=== PATIENT | female | born 1940 ===

== ENCOUNTER 2023-02-14 15:14 | Inpatient (IN) | payer MEDICARE, OTHER ==
[2023-02-14 18:02] LABS: #Basophils 0.1 10x3/uL (0.0-0.2); #Monocytes 0.4 10x3/uL (0.0-1.1); #Neutrophils 5.7 10x3/uL (1.5-8.4); %Basophils 0.7 % (0.0-2.0); %Eosinophils 0.4 % (0.0-6.0); %Lymphocytes 13.6 % (18.0-47.0); %Monocytes 5.6 % (0.0-10.0); %Neutrophils 79.1 % (40.0-75.0); Hematocrit 33.6 % (34.9-44.5); Hemoglobin 11.4 g/dL (12.0-15.5); Mean Corpuscular HGB CONC 33.9 g/dL (32.0-36.0); Mean Corpuscular Hemoglobin 32.9 pg (27.0-33.0); Mean Corpuscular Volume 96.8 fl (81.6-98.3); Mean Platelet Volume 8.8 fl (7.4-10.4); Platelet Count 254 10x3/uL (150-450); RBC Distribution Width 13.1 % (11.5-14.5); Red Blood Cell (RBC) Count 3.47 10x6/uL (3.90-5.03); White Blood Cell (WBC) Count 7.2 10x3/uL (3.5-10.5)
[2023-02-14 18:13] LABS: ALT (SGPT) 14 U/L (8-55); AST (SGOT) 60 U/L (5-34); Albumin 4.5 g/dL (3.4-4.8); Alkaline Phosphatase 68 U/L (40-110); Anion Gap 16 mmol/L (10-20); BUN (Urea Nitrogen) 14 mg/dL (9.8-20.1); Bilirubin, Total 1.2 mg/dL (0.2-1.2); CK (CPK) 2146 U/L (29-168); Calc. Creatinine Clearance 0 mL/min (70-130); Calcium 9.8 mg/dL (7.8-10.44); Carbon Dioxide 25 mmol/L (23-31); Chloride 93 mmol/L (98-107); Estimated GFR 33; Globulin 3.5 g/dL (2.4-3.5); Glucose 106 mg/dL (83-110); Potassium 4.1 mmol/L (3.5-5.1); Sodium 130 mmol/L (136-145)
[2023-02-14] MEDS ORDERED: Haloperidol Lactate 5 MG/ML VIAL ONE (20:17)
[2023-02-14] MEDS ORDERED: Calcium Carbonate 500 MG ChewTAB PO PRN (20:47)
[2023-02-14] MEDS ORDERED: Guaifenesin DM 100-10/5 ML UDCUP PO PRN (20:47)
[2023-02-14] MEDS ORDERED: Senokot S 8.6-50 MG TAB PO PRN (20:47)
[2023-02-14] MEDS ORDERED: Ondansetron PF 4 MG/2 ML Vial IVP PRN (20:47)
[2023-02-14 21:23] LABS: Bilirubin Neg (Negative); Blood, Urine 10 (Negative); Clarity Clear (Clear); Glucose, Urine (Dipstick) Normal (Negative); Ketone, Urine Negative (Negative); Leukocyte 500 (Negative); Nitrite Negative (Negative); Protein, Urine (Dipstick) 30 mg/dl (Neg-Trace); Urobilinogen Normal mg/dL (Less than 2)
[2023-02-14 21:40] LABS: Bacteria/HPF 1+ HPF (None Seen); CAUTI Indications for Culture Alt mental st,lethar; RBC/HPF 0-3 HPF (0-3); Squamous Epithelial 0-3 HPF (0-3)
[2023-02-14 21:41] LABS: Urine Culture Reflex Yes Yes
[2023-02-14] MEDS ORDERED: cefTRIAXone (ROCEPHIN) 1 GM VIAL ONE (21:50)
[2023-02-15 01:59] VITALS: BMI 21.9
[2023-02-15] MEDS ORDERED: QUEtiapine 25 MG TAB PO SCH (02:00)
[2023-02-15] MEDS ORDERED: QUEtiapine 25 MG TAB ONE (02:05)
[2023-02-15] MEDS: Dextrose 5 % And 0.9 % NaCl 1,000 ML IV SCH ×3 (02:06→21:22)
[2023-02-15 03:59] LABS: ALT (SGPT) 15 U/L (8-55); AST (SGOT) 68 U/L (5-34); Albumin 4.5 g/dL (3.4-4.8); Alkaline Phosphatase 68 U/L (40-110); Anion Gap 22 mmol/L (10-20); BUN (Urea Nitrogen) 15 mg/dL (9.8-20.1); Bilirubin, Total 1.1 mg/dL (0.2-1.2); CK (CPK) 2828 U/L (29-168); Calc. Creatinine Clearance 26 mL/min (70-130); Calcium 9.3 mg/dL (7.8-10.44); Carbon Dioxide 20 mmol/L (23-31); Chloride 94 mmol/L (98-107); Estimated GFR 36; Globulin 3.3 g/dL (2.4-3.5); Glucose 103 mg/dL (83-110); Potassium 4.8 mmol/L (3.5-5.1); Protein, Total 7.8 g/dL (5.8-8.1); Sodium 131 mmol/L (136-145)
[2023-02-15 04:25] LABS: Thyroid Stimulating Hormone 62.8496 uIU/mL (0.35-4.94)
[2023-02-15 04:48] LABS: #Eosinphils 0.1 10x3/uL (0.0-0.5); #Monocytes 0.4 10x3/uL (0.0-1.1); #Neutrophils 6.5 10x3/uL (1.5-8.4); %Basophils 0.4 % (0.0-2.0); %Eosinophils 0.6 % (0.0-6.0); %Lymphocytes 11.2 % (18.0-47.0); %Monocytes 5.2 % (0.0-10.0); %Neutrophils 81.8 % (40.0-75.0); Hematocrit 33.8 % (34.9-44.5); Hemoglobin 11.7 g/dL (12.0-15.5); Mean Corpuscular HGB CONC 34.6 g/dL (32.0-36.0); Mean Corpuscular Hemoglobin 32.8 pg (27.0-33.0); Mean Corpuscular Volume 94.7 fl (81.6-98.3); Mean Platelet Volume 9.6 fl (7.4-10.4); Platelet Adequacy Comment PLT clumps seen-ADEQ; Platelet Count 193 10x3/uL (150-450); RBC Distribution Width 12.9 % (11.5-14.5); Red Blood Cell (RBC) Count 3.57 10x6/uL (3.90-5.03); White Blood Cell (WBC) Count 7.9 10x3/uL (3.5-10.5)
[2023-02-15] MEDS ORDERED: Levothyroxine Sodium 75 MCG TAB PO SCH (09:00)
[2023-02-15] MEDS: QUEtiapine 25 MG TAB PO SCH (21:20)
[2023-02-15] MEDS: cefTRIAXone\\ROCEPHIN 1 GM in Sodium Chloride 0.9% 100 ML IVPB SCH (21:20)
[2023-02-16] MEDS: Levothyroxine Sodium 75 MCG TAB PO SCH (06:08)
[2023-02-16] MEDS: Sodium Chloride 0.9% 1,000 ML IV SCH ×2 (11:04→18:58)
[2023-02-16 17:42] LABS: Anion Gap 12 mmol/L (10-20); BUN (Urea Nitrogen) 7 mg/dL (9.8-20.1); CK (CPK) 1892 U/L (29-168); Calc. Creatinine Clearance 30 mL/min (70-130); Calcium 8.5 mg/dL (7.8-10.44); Carbon Dioxide 23 mmol/L (23-31); Chloride 101 mmol/L (98-107); Estimated GFR 42; Glucose 104 mg/dL (83-110); Potassium 3.7 mmol/L (3.5-5.1); Sodium 132 mmol/L (136-145)
[2023-02-16] MEDS: Acetaminophen 325 MG TAB PO PRN (20:27)
[2023-02-16] MEDS: QUEtiapine 25 MG TAB PO SCH (20:28)
[2023-02-16] MEDS ORDERED: Ziprasidone 20 MG VIAL IM SCH ×2 (21:30→22:30)
[2023-02-16] MEDS ORDERED: Sterile Water 10 ML VIAL FS PRN (21:30)
[2023-02-16] MEDS: cefTRIAXone\\ROCEPHIN 1 GM in Sodium Chloride 0.9% 100 ML IVPB SCH (22:04)
[2023-02-17] MEDS: Sodium Chloride 0.9% 1,000 ML IV SCH ×3 (04:43→17:29)
[2023-02-17 05:51] LABS: Anion Gap 14 mmol/L (10-20); BUN (Urea Nitrogen) 8 mg/dL (9.8-20.1); CK (CPK) 1895 U/L (29-168); Calc. Creatinine Clearance 35 mL/min (70-130); Calcium 8.3 mg/dL (7.8-10.44); Carbon Dioxide 22 mmol/L (23-31); Chloride 102 mmol/L (98-107); Estimated GFR 52; Glucose 127 mg/dL (83-110); Potassium 3.5 mmol/L (3.5-5.1); Sodium 134 mmol/L (136-145)
[2023-02-17] MEDS: Levothyroxine Sodium 75 MCG TAB PO SCH (05:51)
[2023-02-18] MEDS: Sodium Chloride 0.9% 1,000 ML IV SCH ×3 (02:01→16:16)
[2023-02-18 03:57] LABS: Anion Gap 14 mmol/L (10-20); BUN (Urea Nitrogen) 6 mg/dL (9.8-20.1); CK (CPK) 1684 U/L (29-168); Calc. Creatinine Clearance 35 mL/min (70-130); Calcium 8.7 mg/dL (7.8-10.44); Carbon Dioxide 21 mmol/L (23-31); Chloride 100 mmol/L (98-107); Estimated GFR 52; Glucose 117 mg/dL (83-110); Potassium 3.8 mmol/L (3.5-5.1); Sodium 131 mmol/L (136-145)
[2023-02-18] MEDS: Levothyroxine Sodium 75 MCG TAB PO SCH (05:57)
[2023-02-18] MEDS: QUEtiapine 25 MG TAB PO SCH ×2 (08:18→21:59)
[2023-02-18] MEDS ORDERED: Ziprasidone 20 MG VIAL IM SCH (08:45)
[2023-02-19] MEDS: Sodium Chloride 0.9% 1,000 ML IV SCH ×3 (01:53→16:37)
[2023-02-19 05:24] LABS: Anion Gap 13 mmol/L (10-20); BUN (Urea Nitrogen) 6 mg/dL (9.8-20.1); CK (CPK) 1198 U/L (29-168); Calc. Creatinine Clearance 30 mL/min (70-130); Calcium 8.9 mg/dL (7.8-10.44); Carbon Dioxide 23 mmol/L (23-31); Chloride 100 mmol/L (98-107); Estimated GFR 43; Glucose 125 mg/dL (83-110); Potassium 3.7 mmol/L (3.5-5.1); Sodium 132 mmol/L (136-145)
[2023-02-19] MEDS: Levothyroxine Sodium 75 MCG TAB PO SCH (05:43)
[2023-02-19] MEDS: QUEtiapine 25 MG TAB PO SCH ×2 (08:36→21:47)
[2023-02-20] MEDS: Sodium Chloride 0.9% 1,000 ML IV SCH ×3 (01:37→15:32)
[2023-02-20 04:55] LABS: Anion Gap 14 mmol/L (10-20); BUN (Urea Nitrogen) 8 mg/dL (9.8-20.1); Calc. Creatinine Clearance 32 mL/min (70-130); Calcium 8.5 mg/dL (7.8-10.44); Carbon Dioxide 22 mmol/L (23-31); Chloride 99 mmol/L (98-107); Estimated GFR 45; Glucose 137 mg/dL (83-110); Potassium 3.3 mmol/L (3.5-5.1); Sodium 132 mmol/L (136-145)
[2023-02-20] MEDS: Levothyroxine Sodium 75 MCG TAB PO SCH (06:25)
[2023-02-20] MEDS: QUEtiapine 25 MG TAB PO SCH ×2 (08:50→22:07)
[2023-02-20] MEDS ORDERED: Potassium Chloride 20 MEQ TAB PO SCH (14:00)
[2023-02-21] MEDS: Sodium Chloride 0.9% 1,000 ML IV SCH ×3 (02:56→10:10)
[2023-02-21 04:06] LABS: Anion Gap 16 mmol/L (10-20); BUN (Urea Nitrogen) 6 mg/dL (9.8-20.1); CK (CPK) 1116 U/L (29-168); Calc. Creatinine Clearance 37 mL/min (70-130); Carbon Dioxide 23 mmol/L (23-31); Chloride 99 mmol/L (98-107); Estimated GFR 55; Glucose 112 mg/dL (83-110); Potassium 4.1 mmol/L (3.5-5.1); Sodium 134 mmol/L (136-145)
[2023-02-21] MEDS: Levothyroxine Sodium 75 MCG TAB PO SCH (05:53)
[2023-02-21] MEDS: QUEtiapine 25 MG TAB PO SCH (10:27)
[2023-02-21] MEDS: Acetaminophen 325 MG TAB PO PRN (22:07)
[2023-02-22] MEDS: Levothyroxine Sodium 75 MCG TAB PO SCH (06:28)
[2023-02-23] MEDS: Levothyroxine Sodium 75 MCG TAB PO SCH (06:10)
[2023-02-23 21:19] VITALS: BP 146/72; TEMP 98.5
== END 2023-02-23 18:06 | DRG 564 ==
LOC: CSHERS 15:14 → CSHERHOLD 20:30 → CSHTELE 02-15 08:34
PROVIDERS: ADMIT Student in an Organized Health Care Education/Training Program; ATTEND Internal Medicine
DX: T79.6XXA Traumatic ischemia of muscle, initial encounter (principal); G93.41 Metabolic encephalopathy; N30.00 Acute cystitis without hematuria; E87.1 Hypo-osmolality and hyponatremia; N17.9 Acute kidney failure, unspecified; S90.01XA Contusion of right ankle, initial encounter; W18.30XA Fall on same level, unspecified, initial encounter; F03.90 Unspecified dementia, unspecified severity, without behavioral disturbance, psychotic disturbance, mood disturbance, and anxiety; E03.9 Hypothyroidism, unspecified; Z66 Do not resuscitate; N28.9 Disorder of kidney and ureter, unspecified; N18.30 Chronic kidney disease, stage 3 unspecified; I12.9 Hypertensive chronic kidney disease with stage 1 through stage 4 chronic kidney disease, or unspecified chronic kidney disease; E87.6 Hypokalemia; Z98.890 Other specified postprocedural states; Z78.9 Other specified health status; Z79.899 Other long term (current) drug therapy
CPT/HCPCS: 36415; 70450; 71045; 72125; 73521; 80048; 80053; 81001; 82550; 82607; 84439; 84443; 85025; 87086; 93005; 93010; 96361; 96365; 96372; J0696; J1630; J1650; J3486; J3490; J7042; J7050